=== PATIENT | male | born 1965 | race Caucasian/White ===

== ENCOUNTER 2019-03-03 17:24 | Observation (INO) ==
[2019-03-03] MEDS ORDERED: ONDANSETRON INJ 2 MG/ML 2 ML VIAL IV STA (17:35)
[2019-03-03] MEDS: MoRPHine SULFATE 4 MG/ML 1 ML CARP\\VIAL IV PRN ×3 (17:44→18:43)
[2019-03-03] MEDS ORDERED: SODIUM CHLORIDE 0.9% 1000ML 1,000 ML IV ONE (17:45)
[2019-03-03] MEDS ORDERED: SODIUM CHLORIDE 0.9% 1000ML 1,000 ML IV SCH (17:45)
[2019-03-03 17:55] LABS: Basophils # (auto) 0.06 K/uL (0-0.2); Basophils % (auto) 0.7 %; Eosinophils # (auto) 0.51 K/uL (0-0.5); Eosinophils % (auto) 5.6 %; Hematocrit (blood only) 40.3 % (42-52); Hemoglobin 14.4 g/dL (14.0-18.0); Immature Granulocytes # (auto) 0.03 K/uL (0.00-0.02); Immature Granulocytes % (auto) 0.3 %; Lymphocytes # (auto) 3.11 K/uL (1.2-3.4); Lymphocytes % (auto) 34.3 %; Mean Corpuscular Hgb Conc 35.7 g/dL (32-36); Mean Corpuscular Volume 92.4 fL (80-100); Mean Platelet Volume 10.1 fL (7.4-10.4); Monocytes # (auto) 0.82 K/uL (0.11-0.59); Neutrophils # (auto) 4.54 K/uL (1.4-6.5); Neutrophils % (auto) 50.1 %; Platelet Count 262 K/uL (130-400); RDW Coefficient of Variation 12.2 % (11.5-14.5); RDW Standard Deviation 41.4 fL (36.4-46.3); Red Blood Count 4.36 M/uL (4.7-6.1); White Blood Count 9.07 K/uL (4.8-10.8)
[2019-03-03 17:57] LABS: iSTAT Creatinine 1.5 mg/dl (0.6-1.3); iSTAT Hemoglobin 13.6 g/dl (14.0-18.0); iSTAT Ionized Calcium 1.13 mmol/l (1.12-1.32); iSTAT Potassium 3.9 mEq/L (3.3-5.0)
[2019-03-03] MEDS ORDERED: IOVERSOL 100ml IV PRN (17:59)
[2019-03-03 18:05] LABS: Partial Thromboplastin Ratio 0.9; Partial Thromboplastin Time 23.4 Seconds (21.0-31.0); Prothrombin Time 10.4 Seconds (9.0-12.0)
[2019-03-03 18:13] LABS: Albumin Level 3.7 gm/dl (3.4-5.0); BUN Creatinine Ratio 12.8 (10-20); Calcium 9.1 mg/dl (8.5-10.1); Creatinine Clr Calc Pharmacy 70.7 ml/min; Est GFR (African American) 62.7; Est GFR (Non-African American) 54.1; Potassium 3.9 mmol/L (3.5-5.1)
[2019-03-03 18:15] LABS: Albumin Globulin Ratio 0.9 (0.9-2); Globulin 3.9 gm/dl (2.5-4.0); Total Protein 7.6 gm/dl (6.4-8.2)
--- NOTE | 2019-03-03 18:24 | CT Scan Report ---
ABDOMEN AND PELVIS CT WITH IV CONTRAST CT DOSE: 886.77 mGy.cm HISTORY: upper abd pain TECHNIQUE: Multiaxial CT images of the abdomen and pelvis were performed following the use of intrave nous contrast. A dose lowering technique was utilized adhering to the principles of ALARA. COMPARISON STUDY: Abdomen and pelvis CT 10/28/2006. FINDINGS: The lung bases are clear. No pneumoperitoneum. No pneumatosis. Partial fusion of the bilate ral sacroiliac joints. Hepatic steatosis. The main portal vein is patent. There is a 4 mm gallstone i dentified. No gallbladder wall thickening. The pancreas, spleen, and adrenal glands are unremarkable. There are few subcentimeter hypodense lesions within the kidneys with the largest measuring 4 mm. Th lena are technically too small to characterize. No hydronephrosis. No retroperitoneal lymphadenopathy. The bladder is unremarkable. No evidence for bowel obstruction. Normal appendix. There is mild infla mmatory change surrounding a short segment of small bowel within the right mid abdomen best seen on i mages 226 through 240. No significant bowel wall thickening. This measures 2.8 cm and appears to be b iza-ending and is therefore consistent with a diverticulum. This is located within the ileum and the refore favors a Meckel's. Therefore, the adjacent inflammatory change suggests a Meckel's diverticuli tis. IMPRESSION: 1. A 2.8 cm diverticulum within the right-sided of the abdomen associated with an ileal loop with min imal surrounding inflammatory change. Therefore, this likely represents a Meckel's diverticulitis. Tinoco rgical consultation recommended. 2. Hepatic steatosis. 3. Cholelithiasis. Electronically signed by: Daniel Barraza M.D. 03/03/2019 6:22 PM
[2019-03-03] MEDS ORDERED: PIPERACILL/TAZOBAC CONSULT ACTIVE PRN (18:30)
[2019-03-03] MEDS ORDERED: PIPERACILLIN/TAZOBACTAM 4.5 GM/120 ML BAG IV ONE (18:30)
--- NOTE | 2019-03-03 18:55 | XRay Report ---
XR chest 1V portable HISTORY: Back pain COMPARISON: None. FINDINGS: Calcified granuloma within the right upper lobe. The lungs are otherwise clear. The heart i s normal in size. No pleural effusions. No pneumothorax. IMPRESSION: No acute process. Electronically signed by: Daniel Barraza M.D. 03/03/2019 6:54 PM
--- NOTE | 2019-03-03 19:13 | History & Physical Report ---
Date of Service March 03, 2019 Assessment & Plan (1) Meckel's diverticulitis: Our plan is to proceed with laparoscopic Meckel's resection possible bowel resection possible open risk and complications were explained to the patient including bleeding infection injury to other organs I would like to proceed accordingly all questions were answered Present on Admission?: Yes History of Present Illness 53-year-old male who ate a regular lunch about 11:00 today approximately 2 hours ago he experienced acute onset of periumbilical pain actually was seen by the ER physician thought that he may have had a ruptured aneurysm underwent a CT scan the abdomen and showed findings compatible with Meckel's diverticulitis He denies any nausea any vomiting the pain is pretty much persisted Primary Care Provider: Patrick Salas MD Allergies Allergy/AdvReac Type Severity Reaction Status Date / Time ERYTHROMYCIN Allergy Mild Hives Uncoded 03/03/19 18:38 Home Medications Home Medications Medication Instructions Recorded Confirmed Type lisinopril 10 mg PO QAM 06/13/18 03/03/19 History metoprolol succinate 50 mg PO QAM 06/13/18 03/03/19 History niacin 500 mg PO QAM 06/13/18 03/03/19 History ibuprofen [Advil] 400 - 800 mg PO UD PRN 03/03/19 03/03/19 History Past Med/Surg History Medical History Chronic kidney disease ELEVATED CREATININE LEVEL---FOLLOW W DR. SALAS Hypertension Surgical History History of cataract surgery RT/LT History of tooth extraction WISDOM TEETH Hx of vasectomy Family History Family/Other Family hx of colon cancer MATERNAL AUNT Social History Preferred Language: [place] Communication Ability: Effective Beliefs That Will Affect Care: None Current Living Situation: Spouse and Family Feels Safe at Home: Yes Smoking Status: Never smoker Second Hand Exposure: No Hx Alcohol Use: Yes Alcohol type: beer and wine Hx Substance Use: No Review of Systems Review of Systems: Patient overall is enjoyed good health he has some hypertension and treated regularly denies any chest pain any shortness of breath any GI symptoms other than the present symptomatology He has had colonoscopy in the past Physical Exam Physical Exam: Patient is alert coherent in no distress family at the bedside The head is normocephalic sclera nonicteric Neck subtle no neck masses thyroid not palpable Chest symmetrical in shape good expansion on inspiration normal breath sounds Heart normal sinus rhythm Abdomen soft distended some guarding in the right lower quadrant bit higher in the right periumbilical area no hernias appreciated Results & Data Vital Signs (Past 12 Hours) Vital Signs Temp Pulse Pulse Resp BP BP Pulse Ox 03/03/19 18:30 56 L 16 143/86 H 98 03/03/19 17:35 52 L 94 03/03/19 17:26 36.4 C L 51 L 16 82/45 L 98 03/03/19 17:24 56 L 20 140/87 96 CAT scan was reviewed discussed with the patient also told the patient he does cholelithiasis although clinically has no symptoms related to this laboratory noted
[2019-03-03] MEDS ORDERED: PHENYLEPHRINE 100MCG/ML 5ML SYR IV PRN (19:36)
[2019-03-03] MEDS ORDERED: MEPERIDINE HCL 25 MG/ML CARP IV PRN (19:36)
[2019-03-03] MEDS ORDERED: HYDROmorphone INJ 1 MG/ML SYRINGE IV PRN (19:36)
[2019-03-03] MEDS ORDERED: fentaNYL citrate 100 MCG/2 ML VIAL IV PRN (19:36)
[2019-03-03] MEDS ORDERED: LABETALOL HCL IV 5 MG/ML 20ML IV PRN (19:36)
[2019-03-03] MEDS ORDERED: ePHEDrine sulfate 50 MG/ML AMP IV PRN (19:36)
[2019-03-03] MEDS ORDERED: ONDANSETRON INJ 2 MG/ML 2 ML VIAL IV PRN (19:36)
[2019-03-03] MEDS ORDERED: ATROPINE SULFATE 0.1 MG/ML 10ML SYR IV PRN (19:36)
--- NOTE | 2019-03-03 19:41 | Anesthesiology Consultation ---
Date of Service March 03, 2019 Assessment & Plan (1) Encounter for pre-operative examination: Chart Review Chart Review: Acceptable Risk for Surgery and Patient NOT seen in Pre Admission Testing Consults Requested none History Surgery Operation Date: 03/03/19 19:45 Proposed Procedures p Laparoscopic Bowel Resection cecilio Jett MD s Bowel Resection, possible open - Shant Jett MD Height/Weight Height: 5 ft 11 in Weight: 99.6 kg Allergies Allergy/AdvReac Type Severity Reaction Status Date / Time ERYTHROMYCIN Allergy Mild Hives Uncoded 03/03/19 18:38 Medications Home Medications Medication Instructions Recorded Confirmed Last Taken lisinopril 10 mg PO QAM 06/13/18 03/03/19 03/03/19 10:00 metoprolol succinate 50 mg PO QAM 06/13/18 03/03/19 03/03/19 10:00 niacin 500 mg PO QAM 06/13/18 03/03/19 03/03/19 10:00 ibuprofen [Advil] 400 - 800 mg PO UD PRN 03/03/19 03/03/19 03/03/19 16:30 Active Medications Generic Name Dose Route Start Last Admin Trade Name Freq PRN Reason Stop Dose Admin Ioversol 94 ml 03/03/19 17:59 03/03/19 17:59 Optiray 320 100ml IV 03/07/19 17:58 94 ml ONCE PRN Administration Interaction Checking Morphine Sulfate 4 mg 03/03/19 17:35 03/03/19 18:43 Morphine Sulfate IV 03/17/19 17:34 4 mg Q15M PRN Administration Pain NPO Date Last Intake of Fluids: 03/03/19 Time Last Intake of Fluids: 15:00 Date Last Intake of Solids: 03/03/19 Time Last Intake of Solids: 11:00 Past Medical History Medical History Meckel's diverticulitis Chronic kidney disease ELEVATED CREATININE LEVEL---FOLLOW W DR. SALAS Hypertension Past Family History Family History Family/Other Family hx of colon cancer MATERNAL AUNT Past Surgical History Surgical History History of cataract surgery RT/LT History of tooth extraction WISDOM TEETH Hx of vasectomy Social History Smoking Status: Never smoker Hx Alcohol Use: Yes Alcohol type: beer and wine alcohol intake frequency: a few times a month Hx Substance Use: No substance use type: does not use Physical Exam Vital Signs Last Vital Signs Temp 36.4 C L 03/03/19 17:26 Pulse 54 L 03/03/19 19:57 Resp 17 03/03/19 19:57 BP 134/73 03/03/19 19:57 Pulse Ox 98 03/03/19 19:57 Testing Electrocardiogram Date: 03/03/19 Findings: + SB @ (53 with PACs) Chest X-Ray Date: 03/03/19 XR chest 1V portable HISTORY: Back pain COMPARISON: None. FINDINGS: Calcified granuloma within the right upper lobe. The lungs are otherwise clear. The heart is normal in size. No pleural effusions. No pneumothorax. IMPRESSION: No acute process. Electronically signed by: Daniel Barraza M.D. 03/03/2019 6:54 PM Other Testing Laboratory Tests 03/14/18 03/03/19 03/03/19 12:02 17:36 17:36 WBC 9.07 Hgb 14.4 Hct 40.3 L Plt Count 262 PT 10.4 INR 1.0 APTT 23.4 Sodium Potassium Chloride Carbon Dioxide BUN Creatinine Glucose TSH 2.120 03/03/19 17:36 WBC Hgb Hct Plt Count PT INR APTT Sodium 141 Potassium 3.9 Chloride 108 H Carbon Dioxide 22 BUN 19 H Creatinine 1.47 H Glucose 112 H TSH
[2019-03-03] MEDS ORDERED: BUPIVACAINE 0.5 % 5 MG/1 ML MPF 30ML VIAL ONE (19:43)
[2019-03-03] MEDS ORDERED: fentaNYL citrate 100 MCG/2 ML VIAL ONE ×2 (19:47→21:21)
[2019-03-03] MEDS ORDERED: MIDAZOLAM HCL 1 MG/ML 2ML VIAL ONE (19:50)
[2019-03-03] MEDS ORDERED: NEOSTIGMINE METHYLSULFATE 5 MG/5 ML SYR ONE (19:55)
[2019-03-03] MEDS ORDERED: ROCURONIUM BROMIDE 10 MG/ML 5 ML VIAL ONE (19:55)
[2019-03-03] MEDS ORDERED: LIDOCAINE HCL 2% 2 ML VIAL/AMP(20MG/ML) INFIL ONE (19:55)
[2019-03-03] MEDS ORDERED: DEXAMETHASONE SOD INJ 4 MG/ML VIAL ONE (19:55)
[2019-03-03] MEDS ORDERED: ONDANSETRON INJ 2 MG/ML 2 ML VIAL ONE (19:55)
[2019-03-03] MEDS ORDERED: PROPOFOL IV EMULSION 10 MG/ML 20 ML VIAL IV ONE (19:55)
[2019-03-03] MEDS ORDERED: GLYCOPYRROLATE 0.2 MG/ML VIAL ONE ×2 (19:56→21:22)
--- NOTE | 2019-03-03 19:59 | Emergency Department Note ---
Entered by Bárbara Johnson acting as a scribe for Sergey Daniels DO History of Present Illness General Chief complaint: Abdominal Pain Stated complaint: ABD PAIN/BACK PAIN Source: patient History of Present Illness Onset (ago): hour(s) 1 Location: abdomen Pain Consistency: + other (Sudden) Maximum Pain Intensity: 8 Quality: + other (Abdominal pain) Relieved By: not by medication (Advil) Associated symptoms: + diaphoresis and + other (Back pain, cold symptoms); no chest pain and no shortness of breath Treatments prior to arrival: other (Advil) The patient is a 53 year old male presenting to the Emergency Department complaining of sudden abdominal pain starting 1 hour ago. The patient reports that he was doing yard work and began experiencing back pain and abdominal pain. He states that his abdominal pain is diffuse. He notes that he is diaphoretic. He adds that he had cold symptoms a few days ago. 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 He states that he sees Dr. Joy PCP. He denies chest pain, shortness of breath, lower extremity swelling, abdominal surgeries, tobacco use and alcohol use. Home Medications Home Medications Medication Instructions Recorded Confirmed Type lisinopril 10 mg PO QAM 06/13/18 03/03/19 History metoprolol succinate 50 mg PO QAM 06/13/18 03/03/19 History niacin 500 mg PO QAM 06/13/18 03/03/19 History ibuprofen [Advil] 400 - 800 mg PO UD PRN 03/03/19 03/03/19 History oxycodone-acetaminophen [Percocet] 1 - 2 tab PO Q4H PRN #15 tab 03/04/19 Rx Allergies Allergy/AdvReac Type Severity Reaction Status Date / Time erythromycin base Allergy Mild Hives Verified 03/03/19 21:04 Past Med/Surg History Medical History Meckel's diverticulitis Chronic kidney disease ELEVATED CREATININE LEVEL---FOLLOW W DR. JOY Hypertension Surgical History History of cataract surgery RT/LT History of tooth extraction WISDOM TEETH Hx of vasectomy Family History Family/Other Family hx of colon cancer MATERNAL AUNT Social History Preferred Language: Kyrgyz Communication Ability: Effective Amr Physician Required: No Beliefs That Will Affect Care: None Current Living Situation: Family Other Information That Helps Us Care for You: No Feels Safe at Home: Yes Safety Concerns: Feels Safe At This Time Smoking Status: Never smoker Second Hand Exposure: No Hx Alcohol Use: No Hx Substance Use: No Review of Systems See HPI for pertinent positives & negatives. and A total of 10 systems reviewed and were otherwise negative Physical Exam Vital Signs Vital Signs - 24 hr 03/03/19 19:31 03/03/19 19:57 03/03/19 20:15 Temperature 36.3 C L Temperature Source Temporal Artery Scan Pulse Rate 54 L Pulse Rate [Apical] 60 Pulse Rate [Right Finger] 59 L Pulse Rhythm [Apical] Regular Respiratory Rate 15 17 15 Respiratory Effort / Characteristics Non-Labored Spontaneous Respiratory Depth Normal Respiratory Pattern Regular Blood Pressure 134/73 Blood Pressure [Left Arm] 137/82 145/84 H Blood Pressure Mean [Left Arm] 100 104 Blood Pressure Position [Left Arm] Semi-fowlers Pulse Oximetry 97 98 98 Oxygen Delivery Method Nasal Cannula Room Air Oxygen Flow Rate 2.5 03/03/19 22:03 Temperature 36.4 C L Temperature Source Temporal Artery Scan Pulse Rate Pulse Rate [Apical] 73 Pulse Rate [Right Finger] Pulse Rhythm [Apical] Regular Respiratory Rate 18 Respiratory Effort / Characteristics Non-Labored Spontaneous Respiratory Depth Respiratory Pattern Regular Blood Pressure Blood Pressure [Left Arm] 161/96 H Blood Pressure Mean [Left Arm] 117 Blood Pressure Position [Left Arm] Semi-fowlers Pulse Oximetry 100 Oxygen Delivery Method Oxymask Oxygen Flow Rate 10 GENERAL: Patient is awake, alert, and in no acute distress.Patient is very anxious and uncomfortable appearing. EYES: The conjunctivae are clear. The pupils are round and reactive. EARS, NOSE, MOUTH AND THROAT: The nose is without any evidence of any deformity. Mucous membranes are moist.Tongue is midline NECK: The neck is nontender and supple. RESPIRATORY: Normal respiratory effort is noted. There is no evidence of wheezing rhonchi or rales to auscultation. CARDIOVASCULAR: Regular rate and rhythm noted. There no murmurs rubs or gallops normal S1 normal S2 GASTROINTESTINAL: Abdomen was mildly distended with right upper and epigastric tenderness. Guarding in right upper quadrant. Bowel sounds are present in all quadrants. MUSCULOSKELETAL/EXTREMITIES: There is no evidence of gross deformity. Full range of motion is noted in the hips and shoulders. SKIN: There is no obvious evidence of any rash. There are no petechiae, pallor or cyanosis noted. Cool and diaphoretic. No pedal edema appreciated. NEUROLOGIC: Patient is awake alert and oriented x3. Course 1732: The patient was evaluated in room A1, and a complete history and physical examination were performed. 1831: I reevaluated the patient at this time. 1840: I discussed the patients case [facility] He will evaluate the patient for further management. Consultations Consultation #1: I discussed the patients case with [facility] He will evaluate the patient for further management. Time: 18:40 Administered Medications Discontinued Medications Hydrocodone Bitart/Acetaminophen (Kennard 5/325) 1 tab PO Q4H PRN PRN Reason: MODERATE Pain (Scale 4,5,6) Stop: 03/17/19 23:00 Last Admin: 03/04/19 00:34 Dose: 1 tab Documented by: [id number] Bupivacaine HCl (Marcaine 0.5% Mpf) Confirm Administered Dose 30 ml .ROUTE .STK- MED ONE Stop: 03/03/19 19:44 Last Admin: 03/03/19 21:30 Dose: 5 ml Documented by: [id number] Sodium Chloride (Nss 1000ml) 1,000 mls @ 999 mls/hr IV .Q1H1M ALEX Stop: 03/03/19 18:45 Last Infusion: 03/03/19 18:45 Dose: 0 mls/hr Documented by: [id number] Admin: 03/03/19 17:44 Dose: 999 mls/hr Documented by: [id number] Sodium Chloride (Nss 1000ml) 1,000 mls @ 999 mls/hr IV .Q1H1M ONE Stop: 03/03/19 18:45 Last Infusion: 03/03/19 19:06 Dose: 0 mls/hr Documented by: [id number] Admin: 03/03/19 18:05 Dose: 999 mls/hr Documented by: [id number] Piperacillin Sod/Tazobactam Sod (Zosyn) 4.5 gm in 120 mls @ 240 mls/hr IV NOW ONE Stop: 03/03/19 18:59 Last Infusion: 03/03/19 19:29 Dose: 0 mls/hr Documented by: [id number] Admin: 03/03/19 18:36 Dose: 240 mls/hr Documented by: [id number] Ioversol (Optiray 320 100ml) 94 ml IV ONCE PRN PRN Reason: Interaction Checking Stop: 03/07/19 17:58 Last Admin: 03/03/19 17:59 Dose: 94 ml Documented by: [id number] [facility]op[facility] ([facility]est[facility]) [facility] Stop: 04/03/19 08:59 Last Admin: 03/04/19 08:53 Dose: 10 mg Documented by: [id number] Metoprolol Succinate (Toprol Xl) 50 [facility] Stop: 04/03/19 08:59 Last Admin: 03/04/19 08:53 Dose: 50 mg Documented by: [id number] Morphine Sulfate (Morphine Sulfate) 4 mg IV Q15M PRN PRN Reason: Pain Stop: 03/17/19 17:34 Last Admin: 03/03/19 18:43 Dose: 4 mg Documented by: [id number] Admin: 03/03/19 18:05 Dose: 4 mg Documented by: [id number] Admin: 03/03/19 17:44 Dose: 4 mg Documented by: [id number] Ondansetron HCl (Zofran) 4 mg IV NOW STA Stop: 03/03/19 17:36 Last Admin: 03/03/19 17:44 Dose: 4 mg Documented by: [id number] Medical Decision Making Differential Diagnosis Differential diagnoses includes but is not limited to gastritis, peptic ulcer disease, GERD, gallbladder disease, pancreatitis, small bowel obstruction, acute coronary syndrome, pericarditis, ischemic bowel, irritable bowel disease, irri table bowel syndrome, appendicitis, diverticulitis, malignancy, hernia, urinary tract infection, torsion, perforation, trauma, infectious. Medical Records Attestation: I reviewed the patient's medical records. Home Medications Current Medication List: was personally reviewed by me Laboratory Data Attestation: I reviewed the patient's lab results. Result diagrams: 03/03/19 17:36 03/03/19 17:36 Lab Results 03/03/19 03/03/19 03/03/19 Range/Units 17:36 17:36 17:36 WBC 9.07 (4.8-10.8) K/uL RBC 4.36 L (4.7-6.1) M/uL Hgb 14.4 (14.0-18.0) g/dL POC Hgb (14.0-18.0) g/dl Hct 40.3 L (42-52) % POC Hct (42-52) % MCV 92.4 (80-100) fL MCH 33.0 (25-34) pg MCHC 35.7 (32-36) g/dL RDW Std Deviation 41.4 (36.4-46.3) fL RDW Coeff of Leni 12.2 (11.5-14.5) % Plt Count 262 (130-400) K/uL MPV 10.1 (7.4-10.4) fL Immature Gran % (Auto) 0.3 % Neut % (Auto) 50.1 % Lymph % (Auto) 34.3 % [place] % (Auto) 9.0 % Eos % (Auto) 5.6 % Baso % (Auto) 0.7 % Immature Gran # (Auto) 0.03 H (0.00-0.02) K/uL Neut # (Auto) 4.54 (1.4-6.5) K/uL Lymph # (Auto) 3.11 (1.2-3.4) K/uL [place] # (Auto) 0.82 H (0.11-0.59) K/uL Eos # (Auto) 0.51 H (0-0.5) K/uL Baso # (Auto) 0.06 (0-0.2) K/uL PT 10.4 (9.0-12.0) Seconds INR 1.0 (0.9-1.1) APTT 23.4 (21.0-31.0) Seconds PTT Ratio 0.9 POC Sodium (135-144) mEq/L Sodium 141 (136-145) mmol/L POC Potassium (3.3-5.0) mEq/L Potassium 3.9 (3.5-5.1) mmol/L POC Chloride (101-112) mEq/L Chloride 108 H (98-107) mmol/L Carbon Dioxide 22 (21-32) mmol/L POC Total CO2 (24-31) mEq/l Anion Gap 11.0 (3-11) POC Anion Gap (16-25) mmol/L POC BUN (7-18) mg/dl BUN 19 H (7-18) mg/dl Creatinine 1.47 H (0.6-1.4) mg/dl POC Creatinine (0.6-1.3) mg/dl Est Cr Clr Drug Dosing 70.7 ml/min Est GFR ( Amer) 62.7 Est GFR (Non-Af Amer) 54.1 BUN/Creatinine Ratio 12.8 (10-20) Glucose 112 H (70-99) mg/dl POC Glucose (other) (70-99) mg/dl Calcium 9.1 (8.5-10.1) mg/dl POC Ioniz Calcium Belle (1.12-1.32) mmol/l Total Bilirubin 1.0 (0.2-1) mg/dl AST 33 (15-37) U/L ALT 36 (12-78) U/L Alkaline Phosphatase 76 (45-117) U/L Total Protein 7.6 (6.4-8.2) gm/dl Albumin 3.7 (3.4-5.0) gm/dl Globulin 3.9 (2.5-4.0) gm/dl Albumin/Globulin Ratio 0.9 (0.9-2) Lipase 80 (73-393) U/L 03/03/19 Range/Units 17:42 WBC (4.8-10.8) K/uL RBC (4.7-6.1) M/uL Hgb (14.0-18.0) g/dL POC Hgb 13.6 L (14.0-18.0) g/dl Hct (42-52) % POC Hct 40 L (42-52) % MCV (80-100) fL MCH (25-34) pg MCHC (32-36) g/dL RDW Std Deviation (36.4-46.3) fL RDW Coeff of Leni (11.5-14.5) % Plt Count (130-400) K/uL MPV (7.4-10.4) fL Immature Gran % (Auto) % Neut % (Auto) % Lymph % (Auto) % [place] % (Auto) % Eos % (Auto) % Baso % (Auto) % Immature Gran # (Auto) (0.00-0.02) K/uL Neut # (Auto) (1.4-6.5) K/uL Lymph # (Auto) (1.2-3.4) K/uL [place] # (Auto) (0.11-0.59) K/uL Eos # (Auto) (0-0.5) K/uL Baso # (Auto) (0-0.2) K/uL PT (9.0-12.0) Seconds INR (0.9-1.1) APTT (21.0-31.0) Seconds PTT Ratio POC Sodium 141 (135-144) mEq/L Sodium (136-145) mmol/L POC Potassium 3.9 (3.3-5.0) mEq/L Potassium (3.5-5.1) mmol/L POC Chloride 104 (101-112) mEq/L Chloride (98-107) mmol/L Carbon Dioxide (21-32) mmol/L POC Total CO2 21 L (24-31) mEq/l Anion Gap (3-11) POC Anion Gap 21.0 (16-25) mmol/L POC BUN 21 H (7-18) mg/dl BUN (7-18) mg/dl Creatinine (0.6-1.4) mg/dl POC Creatinine 1.5 H (0.6-1.3) mg/dl Est Cr Clr Drug Dosing ml/min Est GFR ( Amer) Est GFR (Non-Af Amer) BUN/Creatinine Ratio (10-20) Glucose (70-99) mg/dl POC Glucose (other) 118 H (70-99) mg/dl Calcium (8.5-10.1) mg/dl POC Ioniz Calcium Belle 1.13 (1.12-1.32) mmol/l Total Bilirubin (0.2-1) mg/dl AST (15-37) U/L ALT (12-78) U/L Alkaline Phosphatase (45-117) U/L Total Protein (6.4-8.2) gm/dl Albumin (3.4-5.0) gm/dl Globulin (2.5-4.0) gm/dl Albumin/Globulin Ratio (0.9-2) Lipase (73-393) U/L Imaging Data Radiologist's Impression: Radiology results as stated below per my review and the radiologist's interpretation: ABDOMEN AND PELVIS CT WITH IV CONTRAST CT DOSE: 886.77 mGy.cm HISTORY: upper abd pain TECHNIQUE: Multiaxial CT images of the abdomen and pelvis were performed fol lowing the use of intravenous contrast. A dose lowering technique was utilized adhering to the principles of ALARA. COMPARISON STUDY: Abdomen and pelvis CT 10/28/2006. FINDINGS: The lung bases are clear. No pneumoperitoneum. No pneumatosis. Partial fusion of the bilateral sacroiliac joints. Hepatic steatosis. The main portal vein is patent. There is a 4 mm gallstone identified. No gallbladder wall thickening. The pancreas, spleen, and adrenal glands are unremarkable. There are few subcentimeter hypodense lesions within the kidneys with the largest measuring 4 mm. These are technically too small to characterize. No hydronephrosis. No retroperitoneal lymphadenopathy. The bladder is unremarkable. No evidence for bowel obstruction. Normal appendix. There is mild inflammatory change surrounding a short segment of small bowel within the right mid abdomen best seen on images 226 through 240. No significant bowel wall thickening. This measures 2.8 cm and appears to be blind-ending and is therefore consistent with a diverticulum. This is located within the ileum and therefore favors a Mecke l's. Therefore, the adjacent inflammatory change suggests a Meckel's diverticulitis. IMPRESSION: 1. A 2.8 cm diverticulum within the right-sided of the abdomen associated with an ileal loop with minimal surrounding inflammatory change. Therefore, this likely represents a Meckel's diverticulitis. Surgical consultation recommended. 2. Hepatic steatosis. 3. Cholelithiasis. Electronically signed by: Daniel Barraza M.D. 03/03/2019 6:22 PM XR chest 1V portable HISTORY: Back pain COMPARISON: None. FINDINGS: Calcified granuloma within the right upper lobe. The lungs are otherwise clear. The heart is normal in size. No pleural effusions. No pne umothorax. IMPRESSION: No acute process. Electronically signed by: Daniel Barraza M.D. 03/03/2019 6:54 PM ECG Data Attestation: I personally reviewed and interpreted this ECG as follows: Indication: abdominal pain Rate (beats per minute): 52 Rhythm: sinus bradycardia Findings: no ST depression, no ST elevation and no ectopy Blood Pressure Blood Pressure Findings: Elevated blood pressure Blood Pressure Disposition: further management by hospitalist SHIRA Cochran The patient is a 53-year-old male who presented to the emergency department for an evaluation of abdominal pain. The patient is very significant abdominal pain as well as hypotension. His pain appeared to be mostly right upper quadrant. The patient was treated with IV fluids and IV pain medication. CAT scan did reveal signs of Meckel's diverticulitis. I discussed the patient's laboratory and radiographic studies with him. I also discussed his case with the on-call general surgeon. They have agreed to evaluate the patient in the emergency department for further management and disposition. Impression & Plan Meckel's diverticulitis, Abdominal pain, Hypotension Discharge Plan Visit Data *Final* Discharge Date/Time: 03/03/19 19:57 Chief Complaint: Abdominal Pain Stated Complaint: ABD PAIN/BACK PAIN ED Provider: Sergey Daniels Discharge Problem: Meckel's diverticulitis, Abdominal pain, Hypotension Patient Disposition: Admitted As Inpatient Discharge Instructions Interventions: ED Discharge Assessment Last Done: 03/03/19 19:57 Discharge Problem: Abdominal pain Qualifiers: Abdominal location: right upper quadrant Qualified Code(s): R10.11 - Right upper quadrant pain Hypotension Qualifiers: Hypotension type: unspecified hypotension type Qualified Code(s): I95.9 - Hypotension, unspecified The scribe's documentation has been prepared under my direction and personally reviewed by me in its entirety. I confirm that the note above accurately reflects all work, treatment, procedures, and medical decision making performed by me.
[2019-03-03] MEDS ORDERED: ePHEDrine sulfate 50 MG/ML SYR ONE (20:58)
[2019-03-03] MEDS ORDERED: KETOROLAC 30 MG/ML VIAL ONE (21:31)
--- NOTE | 2019-03-03 21:34 | Post Operative Brief Note ---
Immediate Post Op Note v1 Date of Surgery March 03, 2019 Pre & Post Diagnosis Operation Date: 03/03/19 19:45 Pre-Op Diagnosis: Meckel's Diverticulitis Procedure Operation Date: 03/03/19 19:45 Actual Procedures p Laparoscopic Meckel's Bowel Resection (Not Applicable) - Shant Jett MD s Bowel Resection, possible open - Shant Jett MD Surgeon Shant Jett MD Metals[employer] 0 Estimated Blood Loss 10 Findings Consistent with Post-Op Diagnosis
--- NOTE | 2019-03-03 22:22 | Operative Report ---
Post Operative Report Pre & Post Diagnosis Operation Date: 03/03/19 19:45 Pre-Op Diagnosis: Meckel's Diverticulitis Procedure Operation Date: 03/03/19 19:45 Actual Procedures p Laparoscopic Meckel's Bowel Resection (Not Applicable) - Shant Jett MD s Bowel Resection, possible open - Shant Jett MD The patient was brought into the operating theater supine position general en dotracheal anesthesia the abdomen was prepped Betadine solution properly draped a timeout was had patient identified made a small incision supraumbilically sufficient enough to place a Veress needle followed by 5 mm trocar point of entry inspected no injury identified we look towards the right upper quadrant where the liver appeared normal gallbladder grossly normal the omentum was sprayed over the abdomen down towards right lower quadrant could not see anything definitive could identify briefly the cecum this point I placed a 5 mm right upper quadrant port with preemptive local analgesic patient was rotated to the left and slight Trendelenburg we able to identify the cecum identified the terminal ileum actually was some adherence of the terminal ileum towards the right gutter area or another loop of bowel seem to be going into the general area stuck together was hard to differentiate whether this was the site where the Meckel's could have been identified by CT scan at this point I placed a 5 mm trocar mcfp between the umbilical area and the symphysis pubis proclaimed camera in that area and then I was able to maneuver out lysed the adhesions of the terminal ileum that were attached to lateral abdominal wall and a gutter and identified the terminal ileum to be free of any disease we walked her way back we closed in 2 feet from the ileocecal valve were Marissa of thought was going to likely be there seemed to be some inflammatory changes at the base of this loop of bowel chronic in nature. At this point I was not 100% sure that this was the area where the Meckel's could have been perforated in the antimesenteric or inflamed in that area. Therefore I elected at this point we enlarged the incision bump below the umbilicus patient about 2-1/2 inches long deepened throu gh subcutaneous tissue we then were able to deliver out the distal loop of bowel which appear grossly to be inflamed although there was no mucosal and no fat engorgement like a Crohn's disease and seem to be more at its base but I cannot identify definitive Meckel's in this area therefore I went away from the slough point further down proximally and actually were about 4 feet from the ileocecal valve were I find an indurated area consistent with a Meckel's protruded probably about 2 inches or so from the base the base coming of the bowel was completely normal. I divided the mesentery to the Meckel's ligated with 2-0 silk and then used a ANUPAM stapler fired transversely and resected the Aldana the lumen was not compromised of the remaining bowel oversewed the area with. The area. Satisfactory. Checked for hemostasis as we checked hemostasis and the other area that we had dissected out. The wound was then closed with #1 PDS [id number] interrupted Ruma drain subcu xiao for skin edges and the trocar sites. Patient tolerated procedure well taken recovery room in good condition thank you Surgeon Shant Jett MD Electrical Drafter 0 Estimated Blood Loss 10 Findings Consistent with Post-Op Diagnosis Specimens bridget zhang Description of Procedure katy I attest to the content of the Intraoperative Record and any orders documented therein. Any exceptions are noted below.
--- NOTE | 2019-03-03 22:57 | Anesthesiology Progress Note ---
Date of Service March 03, 2019 Anesthesia Post Procedure Vital Signs Vital Signs: Temp Pulse Pulse Pulse Resp BP BP 03/03/19 22:40 68 18 136/73 03/03/19 22:30 36.6 C 71 16 142/71 H 03/03/19 22:20 72 15 134/75 03/03/19 22:10 67 15 148/74 H 03/03/19 22:03 36.4 C L 73 18 161/96 H 03/03/19 20:15 36.3 C L 60 15 145/84 H 03/03/19 19:57 54 L 17 134/73 03/03/19 19:31 59 L 15 137/82 03/03/19 18:30 56 L 16 143/86 H 03/03/19 17:35 52 L 03/03/19 17:26 36.4 C L 51 L 16 82/45 L 03/03/19 17:24 56 L 20 140/87 Pulse Ox 03/03/19 22:40 93 03/03/19 22:30 94 03/03/19 22:20 98 03/03/19 22:10 100 03/03/19 22:03 100 03/03/19 20:15 98 03/03/19 19:57 98 03/03/19 19:31 97 03/03/19 18:30 98 03/03/19 17:35 94 03/03/19 17:26 98 03/03/19 17:24 96 Pain Intensity Bilateral Upper Abdomen: Pain Intensity: 2 Transfer of Care Handoff Completed per policy Notes Mental Status: alert / awake / arousable Patient Amnestic to Procedure: Yes Nausea / Vomiting: adequately controlled Pain: adequately controlled Airway Patency, RR, SpO2: stable & adequate BP & HR: stable & adequate Hydration State: stable & adequate Anesthetic Complications: no major complications apparent and Pt Satisfied with anesthetic care
[2019-03-03] MEDS ORDERED: HYDROCODONE/ACETAMOPHEN 5/325MG TAB PO PRN (23:01)
[2019-03-03] MEDS ORDERED: MoRPHine SULFATE 2 MG/ML CARP IV PRN (23:01)
--- NOTE | 2019-03-04 08:17 | Surgery Progress Note ---
Date of Service March 04, 2019 Assessment & Plan (1) Meckel's diverticulitis: POD 1 resection of Meckels keep on full liquids ok for d/c, will see in office on seen with Dr. Jett Subjective no nausea, had Percocet around midnight and doing well since Physical Exam Gastrointestinal (Abdomen): Inspection/Auscultation: + abdominal surgical incision (dressing intact); abdomen not distended Results & Data Vital Signs (Past 12 Hours) Vital Signs Temp Pulse Pulse Resp BP Pulse Ox 03/04/19 07:09 36.9 C 71 19 125/73 93 03/04/19 04:00 36.6 C 75 16 109/67 95 03/04/19 01:55 36.6 C 63 16 110/67 94 03/04/19 00:55 36.7 C 73 16 120/67 95 03/03/19 23:55 36.8 C 72 16 119/73 93 03/03/19 23:25 36.5 C 86 16 119/70 93 03/03/19 23:20 36.7 C 67 18 135/79 97 03/03/19 23:03 36.7 C 67 18 135/79 92 03/03/19 22:55 36.7 C 67 16 135/79 93 03/03/19 22:40 68 18 136/73 93 03/03/19 22:30 36.6 C 71 16 142/71 H 94 03/03/19 22:20 72 15 134/75 98 03/03/19 22:10 67 15 148/74 H 100 03/03/19 22:03 36.4 C L 73 18 161/96 H 100
[2019-03-04] MEDS ORDERED: LISINOPRIL 10 MG TAB PO SCH (09:00)
[2019-03-04] MEDS ORDERED: METOPROLOL SUCC 50MG EXT REL TAB PO SCH (09:00)
--- NOTE | 2019-03-08 00:57 | Discharge Summary ---
PRIMARY DISCHARGE DIAGNOSIS: Meckel's diverticulitis. SECONDARY DISCHARGE DIAGNOSIS: Hypertension. PROCEDURE PERFORMED: Laparoscopy with mini laparotomy for resection of Meckel's diverticulum. HOSPITAL COURSE: The patient is a 53-year-old male who presented to the Emergency Department with acute onset of abdominal pain. CT was consistent with a Meckel's diverticulitis. He was taken to the operating room that evening for laparoscopy and mini laparotomy for resection of Meckel's diverticulum. The procedure was well tolerated. He was transferred to the surgical floor for overnight observation. On postoperative day 1, he was able to tolerate advancing diet. He was tolerating oral analgesics. Incision was clean and dry. He was stable for discharge on a full liquid diet. DISCHARGE INSTRUCTIONS: Discharge home. Follow up with Dr. Jett in 1 week. Continue full liquid diet until his bowels are moving. He can resume a regular diet at that time. He will follow up in the office in 2 days for removal of a Ruma drain. DISCHARGE MEDICATIONS: Percocet 1-2 tablets every 4 hours as needed, continue ibuprofen 400-800 mg as needed, metoprolol 50 mg daily, lisinopril 10 mg daily, niacin 500 mg daily. MTDD
== END 2019-03-04 10:39 | disposition home or self-care (01) ==
LOC: 3W 17:24 → ED 17:24 → 3W 19:57